=== PATIENT | male | born 1990 | race Caucasian/White ===

== ENCOUNTER 2020-03-12 00:45 | Emergency (ER) | payer BC, MEDICAID ==
[~2020-03-12] VITALS: Ht 172.7 cm; Wt 71.2 kg
[2020-03-12 00:50] VITALS: BP 132/74
--- NOTE | 2020-03-12 01:02 | NUR ---
29 Y/O MALE C/O LAC TO LEFT EYEBROW S/P HITTING HEAD ON CAR DOOR FRAME AT 7PM LAST NIGHT; PT DENIES LOC OR VISION CHANGES: EYEBROW LAC NOT CURRENTLY BLEEDING; DENIES N/V/D; SKIN IS PINK/WARM/DRY; AAOX4 WITH EVEN AND STEADY GAIT; HR EVEN AND REGULAR; PT DENIES ANY FEVER, CP, SOB, OR COUGH AT THIS TIME; PATIENT STATES PAIN OF 0/10 AT THIS TIME; VSS; PATIENT POSITIONED FOR COMFORT; HOB ELEVATED; BEDRAILS UP X1; BED DOWN AND LOCKED. ER MD MADE AWARE OF PT STATUS. PMH:ASTHMA/SCOLIOSIS ALLERGY: AMOXICILLIN
[2020-03-12] MEDS ORDERED: LIDOCAINE 2% 1000 MG/50 ML VIAL INJ ONE (01:05)
[2020-03-12] MEDS ORDERED: BACITRACIN OINT 500 UNITS/GM PKT TP ONE (01:10)
--- NOTE | 2020-03-12 01:32 | NUR ---
Patient discharged with v/s stable. Written and verbal after care instructions given and explained. Patient alert, oriented and verbalized understanding of instructions. Ambulatory with steady gait. All questions addressed prior to discharge. ID band removed. Patient advised to follow up with PMD. Rx of MOTRIN/BACTRIM given. Patient educated on indication of medication including possible reaction and side effects. Opportunity to ask questions provided and answered.
[2020-03-12 01:33] VITALS: BP 132/74
== END 2020-03-12 01:32 | disposition home or self-care (01) ==
LOC: MED 00:45
DX: S01.112A Laceration without foreign body of left eyelid and periocular area, initial encounter (principal); R03.0 Elevated blood-pressure reading, without diagnosis of hypertension; F17.200 Nicotine dependence, unspecified, uncomplicated; Z71.6 Tobacco abuse counseling; Z88.1 Allergy status to other antibiotic agents; F12.90 Cannabis use, unspecified, uncomplicated; W22.8XXA Striking against or struck by other objects, initial encounter; Y93.89 Activity, other specified; Y92.89 Other specified places as the place of occurrence of the external cause; Y99.8 Other external cause status
CPT/HCPCS: 12013; 99283; J2001